=== PATIENT | male | born 2000 | race Caucasian/White ===

== ENCOUNTER 2019-08-13 21:15 | Emergency (ER) | payer OTHER, SELFPAY ==
[2019-08-13 21:19] VITALS: BP 167/77; PULSE 86; RESP 18; TEMP 36.7; O2SAT 98
[2019-08-13 21:23] VITALS: RESP 16
--- NOTE | 2019-08-13 21:45 | DI.RAD_ITS ---
EXAM: XR CHEST 2V PA LATERAL CLINICAL HISTORY: substernal chest pain. TECHNIQUE: 2D digital imaging was performed. COMPARISON: ABD FLAT UPRIGHT PA CHEST from 06/14/2010 FINDINGS: LUNGS: Clear. No pleural abnormality seen. HEART: Normal. MEDIASTINUM: Normal. OTHER FINDINGS:Normal. BONE:Normal. IMPRESSION: No acute pulmonary findings. DATA REPOSITORY: RADIATION DOSE DELIVERED:
[2019-08-13 22:04] LABS: Absolute Basophil Count 0.01 k/cumm (0.0-0.2); Absolute Eosinophil Count 0.04 k/cumm (0.0-0.7); Absolute Lymphocyte Count 0.99 k/cumm (1.2-3.4); Absolute Monocyte Count 0.73 k/cumm (0.11-0.7); Absolute Neutrophil Count 3.55 k/cumm (1.2-6.7); Basophils % 0.2; Eosinophils % 0.8; HCT 44.5 % (40.0-50.0); HGB 15.9 g/dL (13.5-17.5); Lymphocytes % 18.6; Mean Corp. HGB Concentration 35.7 g/dL (32.0-36.0); Mean Corpuscular Hemoglobin 30.6 pg (27.0-33.0); Mean Corpuscular Volume 85.7 fL (80-95); Mean Platelet Volume 9.8 fL (8.0-11.0); Monocytes % 13.7; Neutrophils % 66.7; Platelet Count 211 x1000/uL (130-400); RBC 5.19 m/cumm (4.50-6.00); RBC Distribution Width 12.1 % (11.8-14.1); White Blood Cell Count 5.32 k/cumm (4.4-10.8)
--- NOTE | 2019-08-13 22:04 | W.ED.GENAD ---
Discharge Plan Disposition Patient Disposition: HOME Discharge Details Chief Complaint: Chest Pain Clinical Impression: Chest pain, GERD (gastroesophageal reflux disease) Primary Care Provider: Magdaleno Arrieta ED Provider: Ludin Martinez Home Meds and New Rx's Prescriptions: No Action No Known Home Meds RF: 0 Discharge Instructions Instructions: Chest Pain (ED), Gastroesophageal Reflux Disease (ED) Additional Instructions: Your work-up in the emergency department was negative for any damage to your heart. No evidence of infection. I suspect your symptoms were related to reflux from your stomach. You may want to try [id number] omeprazole for the next 1 to 2 weeks. If symptoms return or worsen you should contact your primary care provider's office for follow-up. You also were found to have elevated blood pressure readings here in the emergency department. This was also seen in your primary care provider's office. This should be addressed and discussed with your doctor. Referrals: Magdaleno Arrieta [Primary Care Provider] - 5 days Medical Decision Making This is a nontoxic-appearing 18-year-old male who presents to the emergency department with epigastric/substernal burning chest pain earlier today. No active chest pain in the emergency department. Low heart score. PERC negative. Vital signs stable here with the exception of slightly elevated blood pressure readings. Work-up in the emergency department negative for ACS. No electrolyte abnormalities. No anemia or signs of infection. Flu negative. Chest x-ray unremarkable. Hamud-ob-wlul ultrasound demonstrates no pericardial effusion. No LV dysfunction with normal-appearing ejection fraction. No RV strain or septal bowing. Discussed the benign work-up here in the emergency department with the patient and his mother. Recommend close primary care provider follow-up. Discussed the utilization of mayc-xsi-[id number] PPI/H2 blockers. Return precautions discussed. HPI General Date/Time Provider Initiated Documentation: 08/13/19 21:42. HPI Narrative: Patient is a 18-year-old male with significant history for intermittent heartburn/GERD symptoms who presents to the emergency department with substernal chest pain which he describes as burning earlier this evening. He no longer has this pain. He states that the pain started yesterday evening in the midst of a bout of vomiting. He states that he was sick with fever and diarrhea. He localized the pain in the epigastrium and then radiated into the substernal area. He denies any back pain. No abdominal pain. He denies any pain at this time. He was seen in his primary care providers office earlier today where he was told that he most likely had a virus. His blood pressure was elevated with readings in the 160s systolic. Mother was concerned with the elevated blood pressure and the chest pain earlier this evening therefore decided to bring the patient to the emergency department. He denies any shortness of breath. No calf pain or swelling. No hemoptysis. No recent surgeries or prolonged immobilization. No history of VTE. Related Data Home Medications Medication Instructions Recorded Confirmed Unknown [No Known Home Meds] 09/07/13 08/13/19 Allergies Allergy/AdvReac Type Severity Reaction Status Date / Time No Known Allergies Allergy Unverified 08/13/19 21:22 General Stated Complaint: Chest Pain UDAY: 3 Review of Systems Constitutional Constitutional: Reports chills, Reports fatigue, Denies fever(s) and Denies weakness Cardiovascular Cardiovascular: Reports chest pain, Denies edema and Denies dyspnea Respiratory Respiratory: Denies chest congestion, Denies cough, Denies pain with cough, Denies dyspnea and Denies wheezing Gastrointestinal Gastrointestinal: Denies abdominal pain, Reports diarrhea, Reports nausea and Reports vomiting Genitourinary Genitourinary: Denies dysuria and Denies flank pain Musculoskeletal Musculoskeletal: Denies arthralgias and Denies joint swelling Integumentary/Breasts Skin/Breast: Denies rash Neurologic Neurologic: Denies weakness Endocrine Endocrine: Reports fatigue Allergic/Immunologic Allergic/Immunologic: Denies wheezing [facility] Medical History Neoplasm of soft tissue (Acute) Verruca (Acute) Social History Smoking/Tobacco Use Status: Never Alcohol Intake: never Drug use: Never Do you feel safe in your relationship?: Yes Additional Social history: pt is not alone to assess privately Exam Const General: cooperative, healthy appearing, comfortable and no acute distress Orientation: alert, awake and oriented x3 HENMT Head: normal to inspection Neck Neck: full ROM Chest Chest: normal inspection of the chest and normal palpation of entire chest wall Resp Effort & Inspection: normal respiratory effort and able to speak in complete sentences Auscultation: clear to auscultation bilaterally Cardio Jugular venous pressure: no JVD Palpation: normal PMI Rate: regular rate Rhythm: regular rhythm Pulses: normal peripheral pulses GI Inspection: normal to inspection Palpation: soft and nontender Skin General skin exam: no rashes or lesions noted Extrem General: normal to inspection, full ROM, no pedal edema and no calf tenderness Course Vital Signs Vital signs: Vital Signs Temperature 36.7 C 08/13/19 21:19 Pulse 86 08/13/19 21:19 Respiratory Rate 18 08/13/19 21:19 Blood Pressure 167/77 H 08/13/19 21:19 Pulse Oximetry 98 08/13/19 21:19 Temperature 36.7 C 08/13/19 21:19 Pulse 86 08/13/19 21:19 Respiratory Rate 16 08/13/19 21:23 Respiratory Effort Non-Labored 08/13/19 21:23 Blood Pressure 167/77 H 08/13/19 21:19 Pulse Oximetry 98 08/13/19 21:19 Pain Level 8 08/13/19 21:19
[2019-08-13 22:19] LABS: ALT 37 U/L (16-63); AST 22 U/L (15-37); Albumin 3.6 g/dL (3.4-5.0); Alkaline Phosphatase 83 U/L (46-116); Anion Gap 4.4 mmol/L (3-11); BUN 10 mg/dL (7-18); Bilirubin, Total 0.7 mg/dL (0.2-1.0); CO2 30.6 mmol/L (21.0-32.0); CREATININE 0.89 mg/dL (0.70-1.30); Calcium 7.9 mg/dL (8.5-10.1); Chloride 103 mmol/L (98-107); Glucose 98 mg/dL (74-106); Lipase 55 U/L (73-393); Magnesium 1.8 mg/dL (1.8-2.4); Potassium 4.3 mmol/L (3.5-5.1); Sodium 138 mmol/L (136-145); Total Protein 6.7 g/dL (6.4-8.2); Troponin I < 0.05 ng/Ml (<0.06)
--- NOTE | 2019-08-13 22:23 | DI.VRAD_ITS ---
PROCEDURE INFORMATION: Exam: XR Chest, 2 Views Exam date and time: 08/13/2019 10:07 PM Age: 18 years old Clinical indication: Other: Substernal chest pain TECHNIQUE: Imaging protocol: XR of the chest Views: 2 views. COMPARISON: No relevant prior studies available. FINDINGS: Lungs: Unremarkable. No consolidation. Pleural space: Unremarkable. No pleural effusion. No pneumothorax. Heart/Mediastinum: Unremarkable. No cardiomegaly. Bones/joints: Unremarkable. IMPRESSION: No acute findings. Dictated and Authenticated by: Josiah Jenkins MD. Ordering:TRICIA Noland MD
== END 2019-08-13 23:45 | disposition home or self-care (01) ==
PROVIDERS: Emergency Provider Physician Assistant; PCP Family Medicine
DX: R07.89 Other chest pain (principal); K21.9 Gastro-esophageal reflux disease without esophagitis; R03.0 Elevated blood-pressure reading, without diagnosis of hypertension
CPT/HCPCS: 36415; 80053; 83690; 87449; 93005; 99284; 71046; 83735; 84484; 85025; 93010

== ENCOUNTER 2019-08-18 16:44 | Outpatient (REF) | payer OTHER, SELFPAY | END 2019-08-18 17:04 | LOC: NCHCN 16:44 | PROVIDERS: PCP Family Medicine; Visit Provider Family Medicine | DX: I10 Essential (primary) hypertension (principal) | CPT/HCPCS: 84443 ==

== ENCOUNTER 2019-08-27 02:16 | Outpatient (CLI) | payer OTHER, SELFPAY ==
--- NOTE | 2019-08-27 07:30 | DI.US_ITS ---
APPROVED REPORT EXAM: Comprehensive 2D, Doppler, and color-flow Echocardiogram Patient Location: Out-Patient Medical Administrative: Marcella Cage RDCS (AE) Indications: Chest pain, Persistent HTN Conclusion Left Ventricle : The left ventricle is normal size. Left ventricular systolic function is normal. Th ere is normal left ventricular wall thickness. There is normal LV segmental wall motion. The left ve ntricular diastolic function is normal. LVEF is 55-59%. Right Ventricle : The right ventricle is normal size. The right ventricular systolic function is norm al. Atria : The left atrium size is normal. The right atrium size is normal. Valves: There are no hemodynamically significant valvular lesions. Great Vessels : IVC is normal in size and collapses >50% with inspiration. Estimated RVSP is 27-30 m mHg. There is no prior echocardiogram available for comparison. Wall motion Left Ventricle The left ventricle is normal size. Left ventricular systolic function is normal. There is normal left ventricular wall thickness. There is normal LV segmental wall motion. The left ventricular diastolic function is normal. LVEF is 55-59%. Right Ventricle The right ventricle is normal size. The right ventricular systolic function is normal. Atria The left atrium size is normal. The right atrium size is normal. Aortic Valve The aortic valve is normal in structure. Aortic valve is trileaflet. There is no aortic valvular sten osis. No aortic regurgitation is present. Mitral Valve The mitral valve is normal in structure. No evidence of mitral valve stenosis. Trace mitral regurgita tion. Tricuspid Valve The tricuspid valve is normal in structure. There is no tricuspid valve stenosis. Trace tricuspid reg urgitation. Pulmonic Valve The pulmonary valve is normal in structure. There is no pulmonic valvular stenosis. Trace pulmonic re gurgitation. Great Vessels The aortic root is normal in size. The ascending aorta is normal in size. IVC is normal in size and c ollapses >50% with inspiration. Estimated RVSP is 27-30 mmHg. Pericardium There is no pericardial effusion. 2D Dimensions IVSD d PLAX 0.91 cm M: 0.6-1.2 LV Vol A2C d MOD 153.4 mL LVPW d PLAX 0.93 cm M: 0.6 - 1.2 LV Vol A4C d MOD 151.2 mL LVID d PLAX 5.43 cm M: 4.2 - 5.8 LA vol/ BSA A2C s A-L 30.0 mL/m2 LVDs 3.35 cm M: 2.5 - 4.0 LA vol/ BSA A4C s A-L 24.2 mL/m2 Ao Root d 2.62 cm M: 3.1 - 3.7 LA Vol/ BSA Biplane s A-L 29.3 mL/m2 RA Area A4C 16.18 cm2 LA Area A4C s MOD 19.17 cm2 RA Vol/ BSA A4C s A-L 21.7 mL/m2 LA Area A2C s MOD 19.67 cm2 Ao Asc Diam d 2.68 cm M: 2.6 - 3.4 LV EF A4C MOD 57.7 % LV EF Teichholz 67.1 % LV EF A2C MOD 56.2 % LVEF (Mchugh's) 56.97 % M: 52 - 72 LV EF Biplane MOD 57.0 % LV Volume 113.13 mL M: 62 - 150 LV Volume Index 50.95 mL/m2 M: 34 - 74 LV Vol Biplane MOD 156.0 mL FS 37.55 % LV Diastology MV E' medial 0.160 (>0.07 m/s) E/A Ratio 3.0 LV E/e MED 6.60 (<14) MV E Vmax 1.06 (0.4-1.3 m/s) MV E' lateral 0.192 (>0.1 m/s) MV A Vmax 0.35 (0.4-1.3 m/s) LV E/e LAT 5.50 (<14) MV E/A Ratio 2.72 MV E/E' medial 6.64 MV E/E' lateral 5.54 Aortic Valve LVOT Area 3.74 cm2 AoV Area Vmax 3.33 cm2 LVOT Vmax 1.26 m/s AoV Area/ BSA (Vmax) 1.50 cm2/m2 LVOT Mean Garcia. 0.84 m/s GALILEA Mean Garcia. 3.33 cm2 LVOT Peak Grad 6.4 mmHg GALILEA Mean Garcia. Index 1.50 cm2/m2 LVOT Mean Grad 3.3 mmHg LVOT VTI 0.257 m LVOT Diam s 2.15 cm (M/F) 1.5-2.5 AoV Vmax 1.42 (0.5-1.3 m/s) Velocity Ratio 0.88 AoV Mean Garcia. 0.94 m/s AoV Peak Grad 8.0 mmHg LVOT SV 96.00 mL AoV Mean Grad 4.0 (<5 mmHg) AoV VTI 0.266 (0.18-0.25 m) AoV Area VTI 3.61 (2.5-4.5 cm2) AoV Area/ BSA (VTI) 1.63 cm/m2 Mitral Valve MV DT 215 (160-240 msec) MV PHT 62 msec MV Area PHT 3.52 cm2 Pulmonary Valve PV Vmax 1.48 (0.5-1.5 m/s) RVOT Peak Gr. 4.33 mmHg PV Peak Grad 8.7 mmHg RVOT Mean Gr. 2.00 mmHg PV Mean Grad 4.6 mmHg RVOT VTI 0.226 m PV VTI 0.310 m RVOT Vmax 1.04 m/s Tricuspid Valve TR Peak Grad 27.3 mmHg TR Vmax 2.62 m/s RA Pressure 3.00 mmHg RVSP (TR) 30.4 mmHg
== END 2019-08-27 02:36 ==
PROVIDERS: PCP Family Medicine; Visit Provider Family Medicine
DX: R07.89 Other chest pain (principal); I10 Essential (primary) hypertension
CPT/HCPCS: 93306

== ENCOUNTER 2019-08-27 02:38 | Outpatient (CLI) | payer OTHER, SELFPAY ==
[2019-08-27 09:37] LABS: TSH (W/Ref FT4) 1.34 uIU/mL (0.36-3.74)
== END 2019-08-27 02:58 ==
PROVIDERS: PCP Family Medicine; Visit Provider Family Medicine
DX: I10 Essential (primary) hypertension (principal)
CPT/HCPCS: 36415; 84443

== ENCOUNTER 2019-11-19 03:31 | Outpatient (CLI) | payer OTHER, SELFPAY ==
[2019-11-19 16:17] LABS: Ionized Calcium 1.16 mmol/L (1.12-1.32)
[2019-11-20 09:33] LABS: Parathyroid Hormone,Intact 15 pg/mL (19-88)
[2019-11-25 19:39] LABS: Renin Activity, Plasma 3.5 ng/mL/h
== END 2019-11-19 03:51 ==
PROVIDERS: PCP Family Medicine; Visit Provider Family Medicine
DX: E83.51 Hypocalcemia (principal); I10 Essential (primary) hypertension
CPT/HCPCS: 36415; 82330; 83970; 84244

== ENCOUNTER 2019-12-08 08:13 | Outpatient (CLI) | payer OTHER, SELFPAY | END 2019-12-08 08:33 | PROVIDERS: PCP Family Medicine; Visit Provider Family Medicine | DX: R00.2 Palpitations (principal); I10 Essential (primary) hypertension | CPT/HCPCS: 0296T ==

== ENCOUNTER 2021-03-29 15:31 | Outpatient (REF) | payer OTHER, SELFPAY ==
[2021-03-31 00:05] LABS: COVID-19 RT-PCR UVMMC Result Negative (Negative)
== END 2021-03-29 15:32 | disposition home or self-care (01) ==
LOC: LBN 15:31
PROVIDERS: PCP Family Medicine; Visit Provider Nurse Practitioner Family
DX: Z20.822 Contact with and (suspected) exposure to COVID-19 (principal); J06.9 Acute upper respiratory infection, unspecified
CPT/HCPCS: U0003

== ENCOUNTER 2021-03-30 12:46 | Outpatient (REF) | payer OTHER, SELFPAY ==
[2021-03-30 15:38] LABS: Anion Gap 9.5 mmol/L (3-11); BUN 17 mg/dL (7-18); CO2 27.5 mmol/L (21.0-32.0); CREATININE 0.9 mg/dL (0.70-1.30); Calcium 9.9 mg/dL (8.5-10.1); Chloride 103 mmol/L (98-107); Glucose 80 mg/dL (74-106); Potassium 4.5 mmol/L (3.5-5.1); Sodium 140 mmol/L (136-145)
[2021-03-31 10:53] LABS: Hepatitis B Surface Ag Negative (Negative)
[2021-03-31 11:33] LABS: HIV-1/2 Ag & Ab Screen Negative (Negative)
[2021-03-31 14:22] LABS: Hepatitis C Ab w Rflx HCV PCR Negative (Negative)
== END 2021-03-30 12:47 | disposition home or self-care (01) ==
LOC: NCHCN 12:46
PROVIDERS: PCP Family Medicine; Visit Provider Family Medicine
DX: I10 Essential (primary) hypertension (principal); Z00.00 Encounter for general adult medical examination without abnormal findings
CPT/HCPCS: 80048; 86803; 87340; 87389

== ENCOUNTER 2021-11-05 17:41 | Emergency (ER) | payer OTHER, SELFPAY ==
--- NOTE | 2021-11-05 17:45 | DI.RAD_ITS ---
Exam(s) XR FOOT RT COMPLETE EXAM: XR FOOT RT COMPLETE CLINICAL HISTORY: Injury, R/O Fracture. TECHNIQUE: 2D digital imaging was performed. Three views. COMPARISON: No exams were available for comparison FINDINGS: BONES: Nondisplaced fracture base of 5th metatarsal. No additional fractures.. No bony destructive lesion is seen. JOINTS: No dislocation present. SOFT TISSUE: Normal. IMPRESSION: Nondisplaced fracture base of 5th metatarsal. DATA REPOSITORY: RADIATION DOSE DELIVERED:
[2021-11-05 17:47] VITALS: BP 175/66; PULSE 69; RESP 16; TEMP 36; O2SAT 99
--- NOTE | 2021-11-05 18:13 | ED.GENADUL_ITS ---
Discharge Plan Disposition Patient Disposition: HOME Condition: Stable Discharge Details Clinical Impression: Closed nondisplaced fracture of fifth right metatarsal bone Primary Care Provider: Magdaleno Arrieta ED Provider: Selena Finn Home Meds and New Rx's Prescriptions: No Action No Known Home Meds Discharge Instructions Instructions: Foot Fracture in Adults (ED) Additional Instructions: Rest, ice, compression, elevation when sitting or lying down. Wear the Ortho boot until follow-up with orthopedics. Toe-touch weightbearing as tolerated. Use the crutches. Please take Tylenol or Ibuprofen with food every 4-6 hours as needed for pain and swelling. Please follow-up with orthopedics within the next week. They should call you over the next 2 to 3 days to make an appointment if you do not hear from them please give them a call. Referrals: Sarmad Beltran MD [ [facility] STAFF PHYSICIAN] - 1 week Medical Decision Making 21-year-old male presents to the ER with chief complaint of right pain after injury while playing basketball yesterday. Patient reports that he came down hard on his right foot and felt a tearing or pop. He is complaining of lateral foot pain over the fifth metatarsal. No significant swelling or deformity noted. No ankle pain. He reports increased pain with weightbearing and has not been able to bear weight very much. X-rays show 5 metatarsal fracture. Discussed results with patient and family who verbalized understanding. Patient was placed in a walking boot take with his own crutches. Discussed home care and follow-up with Ortho who verbalized understanding. Patient was placed on orthopedic follow-up list. This text was generated using [employer]ation system, please disregard any oddities of phrase or misspellings. Imaging Data Radiologic Study: Imaging: X-Ray Radiologist's impression: Imaging protocol: XR Right foot. Views: 3 or more views. COMPARISON: No relevant prior studies available. FINDINGS: Bones/joints: Acute fracture 25 mm from the base of the 5th metatarsal without distraction. No dislocation. Soft tissues: Soft tissue swelling surrounding the fracture site. IMPRESSION: Acute fracture 2 5 mm from the base of the 5th metatarsal without distraction. Thank you for allowing us to participate in the care of your patient. Dictated and Authenticated by: Nika Ramos MD [facility] General Mode of arrival: wheelchair . Date/Time Provider Initiated Documentation: 11/05/21 17:51 . Limitations to Documentation: no limitations . Information obtained by: patient, RN notes reviewed and old records reviewed . HPI Narrative: 21-year-old male presents to the ER with chief complaint of right pain after injury while playing basketball yesterday. Patient reports that he came down hard on his right foot and felt a tearing or pop. He is complaining of lateral foot pain over the fifth metatarsal. No significant swelling or deformity noted. No ankle pain. He reports increased pain with weightbearing and has not been able to bear weight very much. Related Data Home Medications Medication Instructions Recorded Confirmed Unknown [No Known Home Meds] 09/07/13 01/12/20 Allergies Allergy/AdvReac Type Severity Reaction Status Date / Time No Known Allergies Allergy Unverified 11/05/21 17:51 General Stated Complaint: Orthopedic UDAY: 4 Review of Systems Musculoskeletal Musculoskeletal: Reports as per HPI and Reports arthralgias PFSH All Active Problems (Updated 11/05/21 @ 18:31 by Selena Finn) Closed nondisplaced fracture of fifth right metatarsal bone (Acute) Palpitations (Acute) Chest pain (Acute) GERD (gastroesophageal reflux disease) (Chronic) Medical History (Updated 11/05/21 @ 18:31 by Selena Finn) Neoplasm of soft tissue Verruca Social History Smoking/Tobacco Use Status: Never Smoking risk assessment performed?: Yes Alcohol Intake: never Drug use: Never Substance use type: does not use Do you feel safe at home: Yes Do you feel safe in your relationship?: Yes Additional Social history: pt is not alone to assess privately Exam Extrem Right lower extremity: foot Details: normal capillary refill, normal to inspection, tenderness Location: of the base of the 5th metatarsal, toes with normal ROM and no edema; no abrasion, no laceration and no ecchymosis Course Vital Signs Vital signs: Vital Signs Temperature 36 C L 11/05/21 17:47 Pulse 69 11/05/21 17:47 Respiratory Rate 16 11/05/21 17:47 Blood Pressure 175/66 H 11/05/21 17:47 Pulse Oximetry 99 11/05/21 17:47 Temperature 36 C L 11/05/21 17:47 Temperature Source Temporal Artery Scan 11/05/21 17:47 Pulse 69 11/05/21 17:47 Respiratory Rate 16 11/05/21 17:47 Respiratory Effort Non-Labored 11/05/21 17:51 Blood Pressure 175/66 H 11/05/21 17:47 Blood Pressure Position Sitting 11/05/21 17:47 Pulse Oximetry 99 11/05/21 17:47 Oxygen Delivery Method Room Air 11/05/21 17:47 Oxygen Flow Rate 0 11/05/21 17:47
--- NOTE | 2021-11-05 18:19 | DI.VRAD_ITS ---
PROCEDURE INFORMATION: Exam: XR Right Foot Exam date and time: 11/05/2021 18:01 Age: 21 years old Clinical indication: Injury or trauma; Other: Basketball injury, twisting injury; Sprain or strain and swelling (edema); Foot; Right TECHNIQUE: Imaging protocol: XR Right foot. Views: 3 or more views. COMPARISON: No relevant prior studies available. FINDINGS: Bones/joints: Acute fracture 25 mm from the base of the 5th metatarsal without distraction. No dislocation. Soft tissues: Soft tissue swelling surrounding the fracture site. IMPRESSION: Acute fracture 25 mm from the base of the 5th metatarsal without distraction. Dictated and Authenticated by: Nika Ramos MD. Ordering:BEN Walters MD
--- NOTE | 2021-11-05 18:28 | NUR.NOTE ---
mychal is requesting ortho consult for 5th metatarsal fx, within 1 wk. CLB
== END 2021-11-05 18:45 | disposition home or self-care (01) ==
PROVIDERS: Emergency Provider Registered Nurse Emergency; PCP Family Medicine
DX: S92.354A Nondisplaced fracture of fifth metatarsal bone, right foot, initial encounter for closed fracture (principal); X50.9XXA Other and unspecified overexertion or strenuous movements or postures, initial encounter
CPT/HCPCS: 29515; 99283; 73630

== ENCOUNTER 2021-11-14 15:05 | Outpatient (CLI) | payer OTHER, SELFPAY ==
--- NOTE | 2021-11-14 13:45 | DI.RAD_ITS ---
Exam(s) XR FOOT RT COMPLETE EXAM: XR FOOT RT COMPLETE CLINICAL HISTORY: follow up fracture. TECHNIQUE: 2D digital imaging was performed. COMPARISON: CR,XR XR FOOT RT COMPLETE from 11/05/2021 FINDINGS: 3 views Again noted is a previously described fracture in the proximal half of the 5th metatarsal. The fract ure line is still evident. There has been some healing and there is no displacement. No prominent c allus formation. No other additional fractures evident. No diastasis of the Lisfranc joint. No rad iopaque foreign body. No significant osseous lesions. IMPRESSION: DATA REPOSITORY: RADIATION DOSE DELIVERED:
== END 2021-11-14 15:06 | disposition home or self-care (01) ==
LOC: DIORS 15:05
PROVIDERS: PCP Family Medicine; Referring Provider Family Medicine; Visit Provider Physician Assistant Surgical
DX: S92.354A Nondisplaced fracture of fifth metatarsal bone, right foot, initial encounter for closed fracture (principal)
CPT/HCPCS: 73630

== ENCOUNTER 2021-12-12 15:05 | Outpatient (CLI) | payer OTHER, SELFPAY ==
--- NOTE | 2021-12-12 14:45 | DI.RAD_ITS ---
Exam(s) XR FOOT RT COMPLETE EXAM: XR FOOT RT COMPLETE CLINICAL HISTORY: PINTO FX F/U. TECHNIQUE: 2D digital imaging was performed of the right foot. Three images were obtained. AP, obl ique and lateral views were obtained. COMPARISON: CR XR FOOT RT COMPLETE from 11/14/2021 FINDINGS: BONES: There has been no change in appearance of the fracture through the 5th metatarsal. No bony de structive lesion is seen. JOINTS: No dislocation present. SOFT TISSUE: Normal. IMPRESSION: Stable 5th metatarsal fracture. DATA REPOSITORY: RADIATION DOSE DELIVERED:
== END 2021-12-12 15:06 | disposition home or self-care (01) ==
LOC: DIORS 15:05
PROVIDERS: PCP Family Medicine; Visit Provider Student in an Organized Health Care Education/Training Program
DX: S92.351D Displaced fracture of fifth metatarsal bone, right foot, subsequent encounter for fracture with routine healing (principal); X58.XXXD Exposure to other specified factors, subsequent encounter
CPT/HCPCS: 73630

== ENCOUNTER 2022-01-17 14:26 | Outpatient (CLI) | payer OTHER, SELFPAY ==
--- NOTE | 2022-01-17 14:15 | DI.RAD_ITS ---
Exam(s) XR FOOT RT COMPLETE EXAM: XR FOOT RT COMPLETE CLINICAL HISTORY: RIGHT FOOT F/U. TECHNIQUE: 2D digital imaging was performed. Three views. COMPARISON: CR,XR XR FOOT RT COMPLETE from 11/05/2021 CR XR FOOT RT COMPLETE from 11/14/2021 CR XR FOOT RT COMPLETE from 12/12/2021 FINDINGS: Lucency persists at the 5th metatarsal fracture. No change in alignment. No new fracture. IMPRESSION: No change in appearance of 5th metatarsal fracture. DATA REPOSITORY: RADIATION DOSE DELIVERED:
== END 2022-01-17 14:27 | disposition home or self-care (01) ==
LOC: DIORS 14:26
PROVIDERS: PCP Family Medicine; Referring Provider Family Medicine; Visit Provider Student in an Organized Health Care Education/Training Program
DX: S92.351D Displaced fracture of fifth metatarsal bone, right foot, subsequent encounter for fracture with routine healing (principal); X58.XXXD Exposure to other specified factors, subsequent encounter
CPT/HCPCS: 73630